=== PATIENT | female | born 1960 | race Caucasian/White ===

== ENCOUNTER 2016-04-13 10:01 | Emergency (ER) | payer BC, OTHER ==
[2016-04-13] MEDS ORDERED: WARFARIN 5 MG TABLET PO STA (14:00)
[2016-04-13] MEDS ORDERED: ENOXAPARIN 80 MG/0.8 ML SYRINGE SUBQ STA (14:00)
[2016-04-13] MEDS ORDERED: ENOXAPARIN 80 MG/0.8 ML SYRINGE SUBQ ONE (14:30)
== END 2016-04-13 15:08 | disposition home or self-care (01) ==
DX: I82.432 Acute embolism and thrombosis of left popliteal vein (principal); I82.492 Acute embolism and thrombosis of other specified deep vein of left lower extremity; I10 Essential (primary) hypertension; E03.9 Hypothyroidism, unspecified
CPT/HCPCS: 36415; 85379; 85610; 93971; 96372; 99283; 99284; A9270; J1650

== ENCOUNTER 2016-04-29 10:48 | Emergency (ER) | payer BC, OTHER | END 2016-04-29 12:34 | disposition home or self-care (01) | DX: S52.552A Other extraarticular fracture of lower end of left radius, initial encounter for closed fracture (principal); W19.XXXA Unspecified fall, initial encounter; Y92.009 Unspecified place in unspecified non-institutional (private) residence as the place of occurrence of the external cause; I10 Essential (primary) hypertension; Z86.718 Personal history of other venous thrombosis and embolism; Z79.01 Long term (current) use of anticoagulants; E03.9 Hypothyroidism, unspecified ==

== ENCOUNTER 2016-08-06 07:34 | Outpatient (CLI) | payer BC, OTHER ==
[2016-08-06 14:02] LABS: ALBUMIN/GLOBULIN RATIO 1.4 (1.0-2.2); BILIRUBIN,TOTAL 0.9 mg/dL (0.2-1.0); BUN - BLOOD UREA NITROGEN 17 mg/dL (6-20); CALCIUM 7.3 mg/dL (8.5-10.3); CARBON DIOXIDE - CO2 23 mmol/L (21-32); CHLORIDE 104 mmol/L (101-111); CHOL/HDL RATIO 3.2 (<4.4); CHOLESTEROL 136 mg/dL; CREATININE 0.7 mg/dL (0.4-1.0); GFR - MDRD 87 (>89); GLUCOSE 87 mg/dL (70-100); HDL CHOLESTEROL 43 mg/dL; LDL/HDL RATIO 1.6 (<4.4); POTASSIUM 3.6 mmol/L (3.5-5.0); SODIUM 138 mmol/L (135-145); TOTAL PROTEIN 7.1 g/dL (6.7-8.2); TRIGLYCERIDES 131 mg/dL; VLDL CHOLESTEROL 26 mg/dL
== END 2016-08-06 07:35 | disposition home or self-care (01) ==
LOC: LAB.WCP 07:34
PROVIDERS: ATTEND Physician Assistant Medical
DX: I25.10 Atherosclerotic heart disease of native coronary artery without angina pectoris (principal)
CPT/HCPCS: 36415; 80053; 80061

== ENCOUNTER 2016-09-29 07:40 | Outpatient (CLI) | payer BC, OTHER ==
--- NOTE | 2016-09-29 17:00 | MRI Report ---
EXAM: RIGHT KNEE MRI WITHOUT CONTRAST EXAM DATE: 09/29/2016 08:28 AM. CLINICAL HISTORY: Right knee pain. COMPARISON: None. TECHNIQUE: Multiplanar, multisequence T1-weighted and fluid-sensitive sequences of the knee without c ontrast. Other: None. FINDINGS: Bones and Articular Cartilage: Grade 3-4 chondromalacia at the central weightbearing aspect of the me dial femoral condyle. Grade 2-3 chondromalacia at the medial tibial plateau. Focal grade 2-3 chondrom alacia at the posterior weightbearing aspect of the lateral femoral condyle and focal grade 3-4 chond romalacia at the central and posterior aspects of the lateral tibial plateau. Grade 3-4 chondromalaci a at the medial patellar facet, grade 2-3 chondromalacia at the femoral trochlear groove, and grade 2 chondromalacia at the medial trochlear facet. No acute fractures or bone lesions. Normal marrow sign al. Medial Meniscus: The medial meniscus is intact. Lateral Meniscus: The lateral meniscus is intact. Cruciate Ligaments: The anterior and posterior cruciate ligaments are intact. Collateral Ligaments: The medial collateral and lateral collateral ligamentous structures are intact. Tendons: The quadriceps, patellar, semimembranosus, and popliteus tendons are unremarkable. Musculature: No edema or fatty atrophy. Other: Small joint effusion. Tiny Bear's cyst. No loose bodies. The medial and lateral retinacula ar e intact. The subcutaneous tissues and fat pads are unremarkable. IMPRESSION: 1. Tricompartmental chondromalacia. 2. No ligament or meniscal injury. 3. Small joint effusion and tiny Bear's cyst. [facility] MUSCULOSKE[facility] SECTION Referring Provider Line: [phone] SITE ID: [id number]
== END 2016-09-29 07:41 | disposition home or self-care (01) ==
LOC: DI 07:40
PROVIDERS: ATTEND Family Medicine
DX: M94.261 Chondromalacia, right knee (principal); M25.461 Effusion, right knee; M71.21 Synovial cyst of popliteal space [Baker], right knee

== ENCOUNTER 2017-12-03 16:45 | Outpatient (CLI) | payer OTHER | END 2017-12-03 16:46 | disposition home or self-care (01) | LOC: LAB.R 16:45 | PROVIDERS: ATTEND Physician Assistant | DX: B34.9 Viral infection, unspecified (principal) | CPT/HCPCS: 87275; 87276 ==

== ENCOUNTER 2018-05-09 14:21 | Outpatient (CLI) | payer OTHER ==
--- NOTE | 2018-05-14 12:53 | Mammography Report ---
Reason: SCREENING MAMMO Procedure Date: 05/09/2018 Accession Number: [id number] / [id number] Procedure: MGN - Screening Mammo Dig Bilat CPT Code: FULL RESULT: EXAM: Screening Mammo Dig Bilat DATE: 05/09/2018 2:51 PM CLINICAL HISTORY: Routine screening. No reported personal history of breast cancer. Family history breast cancer in cousin age 45 TECHNIQUE: (B) - Bilateral Bilateral CC and MLO views were obtained. COMPARISON: None PARENCHYMAL PATTERN: (A) - The breasts demonstrate scattered fibroglandular densities bilaterally. FINDINGS: Bilateral breasts: There are no suspicious masses, calcifications, or areas of distortion. IMPRESSION: Negative examination. BI-RADS category1 RECOMMENDATION: (ANNUAL) - Recommend routine annual screening mammography. BI-RADS CATEGORY: (1) - Negative STANDARD QUALIFYING STATEMENTS: 1. This examination was reviewed with the aid of Computer-Aided Detection (CAD). 2. A negative or benign imaging report should not preclude biopsy if clinically suspicious findings are present. 3. Dense breasts may obscure an underlying neoplasm. 4. This examination was reviewed without the aid of 3D breast imaging (tomosynthesis).
== END 2018-05-09 14:22 | disposition home or self-care (01) ==
LOC: DI.N 14:21
DX: Z12.31 Encounter for screening mammogram for malignant neoplasm of breast (principal)
CPT/HCPCS: 77067

== ENCOUNTER 2018-08-04 22:10 | Outpatient (CLI) | payer OTHER | END 2018-08-04 22:11 | disposition critical access hospital (66) | LOC: EMS 22:10 | PROVIDERS: ATTEND Surgery | DX: T63.441A Toxic effect of venom of bees, accidental (unintentional), initial encounter (principal); R07.89 Other chest pain; R06.00 Dyspnea, unspecified | CPT/HCPCS: A0425; A0427 ==

== ENCOUNTER 2018-08-04 22:26 | Emergency (ER) | payer OTHER ==
[2018-08-04] MEDS ORDERED: DEXAMETHASONE 20 MG/5 ML VIAL IVP ONE (22:41)
[2018-08-04] MEDS ORDERED: diphenhydrAMINE INJ 50 MG/ML VIAL IVP STA (22:41)
[2018-08-04] MEDS ORDERED: DEXAMETHASONE 4 MG/ML VIAL ONE (22:58)
--- NOTE | 2018-08-05 00:44 | ED Physician Documentation ---
History of Present Illness - Stated complaint Stated Complaint: BEE STING - Chief complaint Chief Complaint: Resp - History obtained from History obtained from: Patient - History of Present Illness Timing: Today - Additonal information Additional information: 58 y/o shiela was getting ready for bed when she felt a sharp sting on her knee she went to grab her knee and was stung in the hand as well. About 20 minutes later when she tried to lay down she found that she could not breathe. The ambulance was summoned and she has been administered epinephrine and a DuoNeb treatment in route. She has improvement in her breathing and feels overall improved. She has not had this reaction previously. Review of Systems Constitutional: denies: Fever Eyes: denies: Decreased vision Ears: denies: Ear pain Nose: denies: Congestion Throat: denies: Sore throat Cardiac: reports: Chest pain / pressure. denies: Palpitations Respiratory: reports: Dyspnea. denies: Cough, Wheezing GI: denies: Abdominal Pain, Nausea, Vomiting : denies: Dysuria PD PAST MEDICAL HISTORY - Past Medical History Past Medical History: Yes Cardiovascular: Hypertension, High cholesterol, Deep vein thrombosis Respiratory: Asthma Endocrine/Autoimmune: HyPOthyroidism GI: None : None HEENT: None Psych: None Musculoskeletal: Osteoarthritis Derm: None - Past Surgical History Past Surgical History: Yes General: Cholecystectomy Ortho: Arthroscopic surgery HEENT: Tonsil/Adenoidectomy - Present Medications Home Medications: Ambulatory Orders Medication Instructions Recorded Confirmed Atorvastatin Calcium 10 mg PO QDAC 07/17/12 04/29/16 Fexofenadine HCl [Carmen Allergy] 1 tab PO BID 04/29/16 04/29/16 Fluticasone [Flonase] 1 spray INH BID 04/29/16 04/29/16 Fluticasone/Salmeterol [Advair Hfa 2 puffs INH BID 04/29/16 04/29/16 230-21 Mcg Inhaler] HYDROcod/ACETAM 5/325 [[place] 5/325] 1 - 2 ea PO Q6H PRN #15 tablet 04/29/16 Hydrochlorothiazide 12.5 mg PO DAILY 04/29/16 04/29/16 Rivaroxaban [Xarelto] 15 mg PO BID 04/29/16 04/29/16 diltiaZEM CD [Cardizem Cd] 1 tab PO DAILY 04/29/16 04/29/16 EPINEPHrine [Epinephrine] 0.3 mg IJ ONCE PRN #2 auto.injct 08/05/18 - Allergies Allergies/Adverse Reactions: Allergies Allergy/AdvReac Type Severity Reaction Status Date / Time No Known Drug Allergies Allergy Verified 08/04/18 22:39 - Social History Does the pt smoke?: No Smoking Status: Never smoker Does the pt drink ETOH?: Yes Does the pt have substance abuse?: No - Immunizations Immunizations are current?: No Immunizations: TDAP >10years/unknown - POLST Patient has POLST: No PD ED PE NORMAL - Vitals Vital signs reviewed: Yes (tachy and hypertensive) - General General: Alert and oriented X 3, No acute distress, Well developed/nourished - HEENT HEENT: Atraumatic, PERRL, EOMI - Neck Neck: Supple, no meningeal sign - Cardiac Cardiac: No murmur, Other (tchy t) - Respiratory Respiratory: No respiratory distress, Clear bilaterally - Abdomen Abdomen: Soft, Non tender - Back Back: No CVA TTP, No spinal TTP - Derm Derm: Normal color, Warm and dry, No rash - Extremities Extremities: No deformity, No edema, Other (There is minimal local reaction to the sting over the left knee and the right palm) - Neuro Neuro: Alert and oriented X 3, screening tech 2-12 intact, No motor deficit, No sensory deficit, Normal speech Eye Opening: Spontaneous Motor: Obeys Commands Verbal: Oriented GCS Score: 15 - Psych Psych: Normal mood, Normal affect Results - Vitals Vitals: Vital Signs - 24 hr 08/04/18 08/04/18 22:28 23:57 Temperature 37.2 C Heart Rate 104 H 88 Respiratory 18 20 Rate Blood Pressure 151/77 H 149/84 H O2 Saturation 100 94 Oxygen O2 Source Room air PD MEDICAL DECISION MAKING - ED course Complexity details: re-evaluated patient, considered differential, d/w patient, d/w family ED course: 58-year-old female with an anaphylactic reaction to bee sting has had improvement with the use of epinephrine and here in the emergency department she is administered dexamethasone 10 mg and diphenhydramine 50 mg. Her vital signs improved and normal and she is discharged home feeling well. I have discussed with her that she will need to use an autoinjector and she is quite fine with that. Departure - Departure Disposition: Home, Self Care Clinical Impression: Bee sting-induced anaphylaxis Qualifiers: Encounter type: initial encounter Injury intent: accidental or unintentional Qualified Code(s): T63.441A - Toxic effect of venom of bees, accidental (unintentional), initial encounter Condition: Stable Instructions: ED Bite Sting Insect Gen Allergic React Follow-Up: Anabelle Dawkins PA-C [Primary Care Provider] - Prescriptions: EPINEPHrine [Epinephrine] 0.3 mg IJ ONCE PRN #2 auto.injct PRN Reason: bee sting Comments: Take benadryl 25mg every 6 hours for the next 2 days
[2018-08-05 00:48] VITALS: BP 143/78
== END 2018-08-05 00:57 | disposition home or self-care (01) ==
LOC: EDUNIT# → ED 22:26
DX: T63.441A Toxic effect of venom of bees, accidental (unintentional), initial encounter (principal); T78.2XXA Anaphylactic shock, unspecified, initial encounter; R06.00 Dyspnea, unspecified; I10 Essential (primary) hypertension
CPT/HCPCS: 96374; 99283; J1200

== ENCOUNTER 2018-10-29 11:58 | Outpatient (CLI) | payer OTHER ==
--- NOTE | 2018-10-29 18:35 | XRAY Report ---
Reason: LEFT HIP PAIN Procedure Date: 10/29/2018 Accession Number: [id number] / [id number] Procedure: WCP - Hip 1 View LT CPT Code: FULL RESULT: EXAM: LEFT HIP RADIOGRAPHY EXAM DATE: 10/29/2018 12:12 PM. CLINICAL HISTORY: LEFT HIP PAIN. COMPARISON: LT HIP 07/28/2007 12:15 PM. TECHNIQUE: 2 views. FINDINGS: Bones: Normal. No fractures or bone lesion. Joints: Normal. No dislocation. The hip joint space is preserved. Soft Tissues: Surgical clip in the pelvis may be dropped from prior surgery. Some calcifications in the pelvis are likely phleboliths as they mostly have lucent centers. IMPRESSION: Normal left hip radiography. [facility]
== END 2018-10-29 23:59 | disposition home or self-care (01) ==
LOC: DI.WCP 11:58 → EDSTATUS 13:38 → DI.WCP 23:59
PROVIDERS: ATTEND Family Medicine
DX: M25.552 Pain in left hip (principal)

== ENCOUNTER 2019-04-04 14:20 | Emergency (ER) | payer OTHER ==
--- NOTE | 2019-04-04 14:54 | XRAY Report ---
Reason: cough Procedure Date: 04/04/2019 Accession Number: [id number] / [id number] Procedure: XR - Chest 2 View X-Ray CPT Code: 68663 Final Report FULL RESULT: EXAM: CHEST RADIOGRAPHY EXAM DATE: 04/04/2019 02:40 PM. CLINICAL HISTORY: Cough. COMPARISON: Chest radiograph from 03/09/2016. TECHNIQUE: 2 views. FINDINGS: Lungs/Pleura: No focal airspace opacities. No pleural effusion or pneumothorax. Mediastinum: Cardiac silhouette is at the upper limits of normal for size. Mediastinal contour and pulmonary vasculature are within normal limits. Other: None. IMPRESSION: No acute cardiopulmonary abnormality. [facility]
--- NOTE | 2019-04-04 17:26 | ED Physician Documentation ---
PD HPI URI - Stated complaint Stated Complaint: SOA - Chief complaint Chief Complaint: Resp - History obtained from History obtained from: Patient - History of Present Illness Timing - onset: How many weeks ago (1) Timing duration: Weeks (1) Timing details: Gradual onset, Still present Associated symptoms: Nasal congestion, Productive cough, Dyspnea (with wheezing). No: Fever, Sore throat Contributing factors: COPD / asthma. No: Sick contact, Travel, Immunocompromised Improves by: MDI/nebulizer Worsened by: Activity Similar symptoms before: Diagnosis (asthma exac with URIs. Usually responds to steroids more promptly.) Recently seen: Clinic (seen 5 days ago and Rx prednisone. Did 60 mg for 3 days, now at 40 mg for 2 days, and not much improvement. Using nebulizer at home.) Review of Systems Constitutional: reports: Myalgias. denies: Fever, Chills Nose: reports: Congestion Throat: denies: Sore throat Cardiac: denies: Chest pain / pressure, Palpitations, Pedal edema Respiratory: reports: Dyspnea, Cough, Wheezing GI: reports: Nausea. denies: Abdominal Pain, Vomiting, Diarrhea : denies: Dysuria, Frequency Neurologic: reports: Generalized weakness. denies: Focal weakness, Numbness PD PAST MEDICAL HISTORY - Past Medical History Cardiovascular: Hypertension, High cholesterol, Deep vein thrombosis, Atrial fibrillation Respiratory: Asthma Endocrine/Autoimmune: HyPOthyroidism GI: None : None HEENT: None Psych: None Musculoskeletal: Osteoarthritis Derm: None - Past Surgical History Past Surgical History: Yes General: Cholecystectomy Ortho: Arthroscopic surgery HEENT: Tonsil/Adenoidectomy - Present Medications Home Medications: Ambulatory Orders Medication Instructions Recorded Confirmed Atorvastatin Calcium 10 mg PO QDAC 07/17/12 04/29/16 Fexofenadine HCl [Carmen Allergy] 1 tab PO BID 04/29/16 04/29/16 Fluticasone [Flonase] 1 spray INH BID 04/29/16 04/29/16 Fluticasone/Salmeterol [Advair Hfa 2 puffs INH BID 04/29/16 04/29/16 230-21 Mcg Inhaler] HYDROcod/ACETAM 5/325 [[place] 5/325] 1 - 2 ea PO Q6H PRN #15 tablet 04/29/16 Hydrochlorothiazide 12.5 mg PO DAILY 04/29/16 04/29/16 Rivaroxaban [Xarelto] 15 mg PO BID 04/29/16 04/29/16 diltiaZEM CD [Cardizem Cd] 1 tab PO DAILY 04/29/16 04/29/16 EPINEPHrine [Epinephrine] 0.3 mg IJ ONCE PRN #2 auto.injct 08/05/18 Benzonatate [Tessalon Perle] 100 mg PO TID PRN #25 capsule 04/04/19 Doxycycline Monohydrate 100 mg PO BID #14 tablet 04/04/19 Hydrocodone/Acetaminophen [[place] 1 each PO Q6H PRN #15 tablet 04/04/19 5-325 Tablet] predniSONE [Prednisone] 60 mg PO DAILY #15 tablet 04/04/19 - Allergies Allergies/Adverse Reactions: Allergies Allergy/AdvReac Type Severity Reaction Status Date / Time No Known Drug Allergies Allergy Verified 04/04/19 14:23 - Social History Does the pt smoke?: No Smoking Status: Never smoker Does the pt drink ETOH?: Yes Does the pt have substance abuse?: No - Immunizations Immunizations are current?: No Immunizations: TDAP >10years/unknown - POLST Patient has POLST: No PD ED PE NORMAL - Vitals Vital signs reviewed: Yes - General General: Alert and oriented X 3, No acute distress, Well developed/nourished - Neck Neck: Supple, no meningeal sign, No adenopathy - Cardiac Cardiac: RRR, No murmur - Respiratory Respiratory: No respiratory distress, Clear bilaterally - Abdomen Abdomen: Soft, Non tender - Extremities Extremities: No edema, No calf tenderness / cord - Neuro Neuro: Alert and oriented X 3, No motor deficit, Normal speech Results - Vitals Vitals: Vital Signs - 24 hr 04/04/19 18:11 Temperature 36.7 C Heart Rate 70 Respiratory 18 Rate Blood Pressure 166/91 H O2 Saturation 96 Oxygen O2 Source Room air - Rads (name of study) chest xray Radiology: Prelim report reviewed, See rad report PD MEDICAL DECISION MAKING - ED course Complexity details: considered differential (Given her asthma and productive cough and inadequate response to just steroids, I would consider possibility of bacterial infection as well. I would continue her steroids and add an antibiotic and medicine for cough.), d/w patient Departure - Departure Disposition: 01 Home, Self Care Clinical Impression: Exacerbation of asthma Qualifiers: Asthma severity: moderate Asthma persistence: unspecified Qualified Code(s): J45.901 - Unspecified asthma with (acute) exacerbation Acute bronchitis Qualifiers: Bronchitis organism: unspecified organism Qualified Code(s): J20.9 - Acute bronchitis, unspecified Condition: Stable Record reviewed to determine appropriate education?: Yes Follow-Up: Anabelle Dawkins PA-C [Primary Care Provider] - Prescriptions: Benzonatate [Tessalon Perle] 100 mg PO TID PRN #25 capsule PRN Reason: Cough Doxycycline Monohydrate 100 mg PO BID #14 tablet Hydrocodone/Acetaminophen [[place] 5-325 Tablet] 1 each PO Q6H PRN #15 tablet PRN Reason: Pain predniSONE [Prednisone] 60 mg PO DAILY #15 tablet Comments: Continue your DuoNeb nebulizers 4 times a day for the next week or so and then as needed. Continue the prednisone at 60 mg daily for 3 more days and then down to 40 mg for couple of days and then to the 1 mg for a few days. Doxycycline antibiotic twice daily for a week. Use benzonatate as needed for cough suppression. You can use the codeine cough medicine you have at home or alternatively hydrocodone pain pill to help with pain as well as cough suppression. Recheck if not improving well over the next couple of days. Discharge Date/Time: 04/04/19 18:18
[2019-04-04] MEDS ORDERED: DOXYCYCLINE 100 MG TABLET PO STA (17:52)
[2019-04-04] MEDS ORDERED: BENZONATATE 100 MG CAPSULE PO STA (17:52)
[2019-04-04] MEDS ORDERED: HYDROcod/ACETAM 5/325 MG TABLET PO STA (17:52)
[2019-04-04 18:12] VITALS: BP 166/91
== END 2019-04-04 18:18 | disposition home or self-care (01) ==
LOC: ED 14:20
DX: J45.901 Unspecified asthma with (acute) exacerbation (principal); J20.9 Acute bronchitis, unspecified; E03.9 Hypothyroidism, unspecified; I48.91 Unspecified atrial fibrillation; Z79.51 Long term (current) use of inhaled steroids; Z79.52 Long term (current) use of systemic steroids; Z79.01 Long term (current) use of anticoagulants
CPT/HCPCS: 71046; 99283; 99284; A9270

== ENCOUNTER 2019-04-09 13:56 | Emergency (ER) | payer OTHER ==
[2019-04-09] MEDS ORDERED: IPRATROPIUM/ALBUTEROL 3 ML NEB INH STA (16:20)
--- NOTE | 2019-04-09 16:21 | ED Physician Documentation ---
PD HPI DYSPNEA - Stated complaint Stated Complaint: SOA - Chief complaint Chief Complaint: Resp - History obtained from History obtained from: Patient (This is a very pleasant woman with history of asthma who has not been feeling well for the last month or so. She is been short of breath, she does get help with DuoNeb and has been on prednisone for about 10 days now and feels worse today because the prednisone taper started and she feels like she needed more prednisone. She did go from 60 to 40 mg of prednisone today. There is some anterior chest pressure radiating up to the neck. She was seen a few days ago and also put on antibiotics. A chest x-ray at that time was negative. He has a history of atrial fibrillation maintained on diltiazem but not anticoagulants but also a history of DVT.) Review of Systems Constitutional: reports: Fatigue. denies: Fever, Chills Throat: denies: Sore throat Cardiac: reports: Chest pain / pressure. denies: Palpitations, Pedal edema, Calf pain Respiratory: reports: Dyspnea. denies: Cough, Hemoptysis, Wheezing PD PAST MEDICAL HISTORY - Past Medical History Cardiovascular: Hypertension, High cholesterol, Deep vein thrombosis, Atrial fibrillation Respiratory: Asthma Endocrine/Autoimmune: HyPOthyroidism GI: None : None HEENT: None Psych: None Musculoskeletal: Osteoarthritis Derm: None - Past Surgical History Past Surgical History: Yes General: Cholecystectomy Ortho: Arthroscopic surgery HEENT: Tonsil/Adenoidectomy - Present Medications Home Medications: Ambulatory Orders Medication Instructions Recorded Confirmed Atorvastatin Calcium 10 mg PO QDAC 07/17/12 04/29/16 Fexofenadine HCl [Carmen Allergy] 1 tab PO BID 04/29/16 04/29/16 Fluticasone [Flonase] 1 spray INH BID 04/29/16 04/29/16 Fluticasone/Salmeterol [Advair Hfa 2 puffs INH BID 04/29/16 04/29/16 230-21 Mcg Inhaler] HYDROcod/ACETAM 5/325 [[place] 5/325] 1 - 2 ea PO Q6H PRN #15 tablet 04/29/16 Hydrochlorothiazide 12.5 mg PO DAILY 04/29/16 04/29/16 Rivaroxaban [Xarelto] 15 mg PO BID 04/29/16 04/29/16 diltiaZEM CD [Cardizem Cd] 1 tab PO DAILY 04/29/16 04/29/16 EPINEPHrine [Epinephrine] 0.3 mg IJ ONCE PRN #2 auto.injct 08/05/18 Benzonatate [Tessalon Perle] 100 mg PO TID PRN #25 capsule 04/04/19 Doxycycline Monohydrate 100 mg PO BID #14 tablet 04/04/19 Hydrocodone/Acetaminophen [[place] 1 each PO Q6H PRN #15 tablet 04/04/19 5-325 Tablet] predniSONE [Prednisone] 60 mg PO DAILY #15 tablet 04/04/19 predniSONE [Deltasone] 60 mg PO DAILY 5 Days #15 tablet 04/09/19 - Allergies Allergies/Adverse Reactions: Allergies Allergy/AdvReac Type Severity Reaction Status Date / Time bee pollen Allergy Unknown Verified 04/09/19 13:59 seasonal Allergy Respiratory Uncoded 04/06/19 14:24 - Social History Does the pt smoke?: No Smoking Status: Never smoker Does the pt drink ETOH?: Yes Does the pt have substance abuse?: No - Immunizations Immunizations are current?: No Immunizations: TDAP >10years/unknown - POLST Patient has POLST: No PD ED PE NORMAL - Vitals Vital signs reviewed: Yes - General General: Alert and oriented X 3, Other (Occasional cough despite her saying she has no cough.) - HEENT HEENT: PERRL, EOMI - Neck Neck: Supple, no meningeal sign, No bony TTP - Cardiac Cardiac: RRR, No murmur - Respiratory Respiratory: No respiratory distress, Clear bilaterally - Abdomen Abdomen: Non tender - Back Back: No CVA TTP, No spinal TTP - Derm Derm: Normal color, Warm and dry - Extremities Extremities: No edema, No calf tenderness / cord - Neuro Neuro: Alert and oriented X 3, Normal speech Results - Vitals Vitals: Vital Signs - 24 hr 04/09/19 04/09/19 13:59 16:08 Temperature 36.9 C 36.8 C Heart Rate 71 71 Respiratory 18 16 Rate Blood Pressure 171/83 H 130/75 O2 Saturation 98 97 Oxygen O2 Source T-piece - EKG (time done) 1636 Rate: Rate (enter#) (69) Rhythm: NSR [place]: Normal Intervals: Normal [place] QRS: Normal Ischemia: Non specific changes. No: ST elevation c/w ischemia Compare to prior EKG: Unchanged from prior EKG - Labs Labs: Laboratory Tests 04/09/19 04/09/19 04/09/19 16:44 16:44 16:44 WBC 17.4 H RBC 5.38 Hgb 13.0 Hct 41.4 MCV 77.0 L MCH 24.2 L MCHC 31.4 L RDW 16.9 H Plt Count 331 MPV 9.9 Neut # (Auto) 13.7 H Lymph # (Auto) 1.7 [place] # (Auto) 0.9 Eos # (Auto) 0.0 Baso # (Auto) 0.1 Absolute Nucleated RBC 0.00 Nucleated RBC % 0.0 D-Dimer 281.3 H Sodium 142 Potassium 3.5 Chloride 103 Carbon Dioxide 25 Anion Gap 14.0 H BUN 18 Creatinine 0.7 Estimated GFR (MDRD) 86 L Glucose 121 H Calcium 7.6 L Total Bilirubin 1.2 H AST 18 ALT 26 Alkaline Phosphatase 86 Troponin I High Sens Total Protein 7.7 Albumin 4.3 Globulin 3.4 Albumin/Globulin Ratio 1.3 Lipase 30 04/09/19 16:44 WBC RBC Hgb Hct MCV MCH MCHC RDW Plt Count MPV Neut # (Auto) Lymph # (Auto) [place] # (Auto) Eos # (Auto) Baso # (Auto) Absolute Nucleated RBC Nucleated RBC % D-Dimer Sodium Potassium Chloride Carbon Dioxide Anion Gap BUN Creatinine Estimated GFR (MDRD) Glucose Calcium Total Bilirubin AST ALT Alkaline Phosphatase Troponin I High Sens 2.5 Total Protein Albumin Globulin Albumin/Globulin Ratio Lipase PD MEDICAL DECISION MAKING - ED course ED course: 59-year-old woman presents with shortness of breath in the setting of pre- existing diagnosis of bronchitis and underlying asthma. Feeling worse today after decreasing the dose of steroids. She felt better after a DuoNeb here. Expanded work-up to consider cardiac and PE causes was undertaken, cardiac work- up was negative. She had a modestly elevated d-dimer which was followed by CT angiography of the test which was negative. We will increase the steroids but counseled and she understands that she needs to come down off the steroids soon as possible. Departure - Departure Disposition: 01 Home, Self Care Clinical Impression: Bronchitis Dyspnea Qualifiers: Dyspnea type: shortness of breath Qualified Code(s): R06.02 - Shortness of breath; R06.00 - Dyspnea, unspecified; R06.01 - Orthopnea Condition: Good Record reviewed to determine appropriate education?: Yes Instructions: ED Bronchitis Asthmatic Prescriptions: predniSONE [Deltasone] 60 mg PO DAILY 5 Days #15 tablet Comments: Follow-up with your doctor on Saturday as scheduled. Return for new or worsening symptoms. You can go back to the prednisone at 60 mg a day but as discussed you need to come down off of it as soon as possible to avoid long-term side effects.
[2019-04-09 16:52] LABS: BASOPHILS # (AUTO) 0.1 10^3/uL (0.0-0.1); BASOPHILS % (AUTO) 0.4 %; LYMPHOCYTES # (AUTO) 1.7 10^3/uL (1.5-3.5); LYMPHOCYTES % (AUTO) 9.8 %; MEAN CORPUSCULAR HEMOGLOBIN 24.2 pg (27.0-31.0); MEAN CORPUSCULAR HGB CONC 31.4 g/dL (32.0-36.0); MEAN PLATELET VOLUME 9.9 fL (7.9-10.8); MONOCYTES # (AUTO) 0.9 10^3/uL (0.0-1.0); MONOCYTES % (AUTO) 5.2 %; NEUTROPHILS # (AUTO) 13.7 10^3/uL (1.5-6.6); NEUTROPHILS % (AUTO) 78.9 %; PLT - PLATELET COUNT 331 10^3/uL (130-450); RED BLOOD COUNT 5.38 10^6/uL (4.20-5.40); RED CELL DISTRIBUTION WIDTH 16.9 % (12.0-15.0); WHITE BLOOD COUNT 17.4 x10^3/uL (4.8-10.8)
[2019-04-09 17:06] LABS: ALBUMIN 4.3 g/dL (3.2-5.5); ALBUMIN/GLOBULIN RATIO 1.3 (1.0-2.2); BILIRUBIN,TOTAL 1.2 mg/dL (0.2-1.0); CALCIUM 7.6 mg/dL (8.5-10.3); CREATININE 0.7 mg/dL (0.4-1.0); TOTAL PROTEIN 7.7 g/dL (6.7-8.2)
[2019-04-09] MEDS ORDERED: IOVERSOL 320 100 ML VIAL IVP ONE ×2 (17:57→18:53)
--- NOTE | 2019-04-09 19:26 | CT Report ---
Reason: dyspnea, pos dimer, Pe protocol Procedure Date: 04/09/2019 Accession Number: [id number] / [id number] Procedure: CT - ANGIO CHEST W/WO CPT Code: Final Report FULL RESULT: EXAM: CT ANGIOGRAM CHEST EXAM DATE: 04/09/2019 06:52 PM. CLINICAL HISTORY: Dyspnea and positive d-dimer COMPARISON: CHEST ANGIO 11/30/2015 5:00 PM. TECHNIQUE: Routine helical imaging was performed through the chest in the pulmonary arterial phase. IV Contrast: OPTIRAY 320. Reconstructions: Coronal 3-D MIP reconstructions. Sagittal and coronal. In accordance with CT protocol optimization, one or more of the following dose reduction techniques were utilized for this exam: automated exposure control, adjustment of mA and/or KV based on patient size, or use of iterative reconstructive technique. FINDINGS: Pulmonary Arteries: Diagnostic quality: Adequate through the segmental arteries. Negative for acute pulmonary embolism. Main pulmonary artery size is normal. Lungs/Pleura: The lungs appear clear. Lung volumes are normal. Negative for pleural effusion and pneumothorax. Mediastinum: Heart size is normal. Negative for pericardial effusion. No mediastinal or hilar lymphadenopathy. Thoracic Aorta: Negative for thoracic aortic aneurysm and dissection. Upper Abdomen: There are calcified granulomas in the spleen. There is a cyst in the liver. Other: None. IMPRESSION: 1. Negative for acute pulmonary embolism. 2. No other significant acute process in the chest. [facility]
[2019-04-09] MEDS ORDERED: DEXAMETHASONE 10 MG/ML VIAL IVP STA (19:43)
[2019-04-09 19:58] VITALS: BP 151/70
== END 2019-04-09 19:57 | disposition home or self-care (01) ==
LOC: ED 13:56
DX: J40 Bronchitis, not specified as acute or chronic (principal); R79.89 Other specified abnormal findings of blood chemistry; I10 Essential (primary) hypertension; Z86.718 Personal history of other venous thrombosis and embolism; Z79.01 Long term (current) use of anticoagulants
CPT/HCPCS: 36415; 71275; 80053; 83690; 84484; 85025; 85379; 93005; 94640; 96374; 99284; Q9967

== ENCOUNTER → 2020-02-26 | Outpatient (CLI) | payer OTHER ==
[2020-02-26 12:57] LABS: BASOPHILS # (AUTO) 0.1 10^3/uL (0.0-0.1); EOSINOPHILS # (AUTO) 0.3 10^3/uL (0.0-0.7); EOSINOPHILS % (AUTO) 3.2 %; HGB - HEMOGLOBIN 13.5 g/dL (12.0-16.0); LYMPHOCYTES # (AUTO) 2.1 10^3/uL (1.5-3.5); LYMPHOCYTES % (AUTO) 25.3 %; MEAN CORPUSCULAR HEMOGLOBIN 25.9 pg (27.0-31.0); MEAN CORPUSCULAR HGB CONC 31.2 g/dL (32.0-36.0); MONOCYTES # (AUTO) 0.5 10^3/uL (0.0-1.0); MONOCYTES % (AUTO) 5.9 %; NEUTROPHILS # (AUTO) 5.3 10^3/uL (1.5-6.6); NEUTROPHILS % (AUTO) 63.4 %; PLT - PLATELET COUNT 270 10^3/uL (130-450); RED BLOOD COUNT 5.22 10^6/uL (4.20-5.40); RED CELL DISTRIBUTION WIDTH 14.6 % (12.0-15.0); WHITE BLOOD COUNT 8.3 x10^3/uL (4.8-10.8)
[2020-02-26 13:20] LABS: ALBUMIN 4.4 g/dL (3.2-5.5); ALBUMIN/GLOBULIN RATIO 1.4 (1.0-2.2); ALKALINE PHOSPHATASE 104 IU/L (42-121); ALT ALANINE AMINOTRANSFERASE 25 IU/L (10-60); AST ASPARTATE AMINOTRANSFERASE 23 IU/L (10-42); BILIRUBIN,TOTAL 1.1 mg/dL (0.2-1.0); BUN - BLOOD UREA NITROGEN 14 mg/dL (6-20); CALCIUM 7.7 mg/dL (8.5-10.3); CARBON DIOXIDE - CO2 26 mmol/L (21-32); CHLORIDE 103 mmol/L (101-111); CHOL/HDL RATIO 4.3 (<4.4); CHOLESTEROL 179 mg/dL; CREATININE 0.7 mg/dL (0.4-1.0); GLUCOSE 94 mg/dL (70-100); HDL CHOLESTEROL 42 mg/dL; LDL CHOLESTEROL,CALCULATED 105 mg/dL; LDL/HDL RATIO 2.5 (<4.4); SODIUM 142 mmol/L (135-145); TOTAL PROTEIN 7.6 g/dL (6.7-8.2); VLDL CHOLESTEROL 32 mg/dL
== END ==
LOC: LAB.WCP 08:00
PROVIDERS: ATTEND Physician Assistant Medical
DX: E78.5 Hyperlipidemia, unspecified (principal); J45.909 Unspecified asthma, uncomplicated
CPT/HCPCS: 36415; 80053; 80061; 83721; 85025

== ENCOUNTER 2020-04-11 15:17 | Outpatient (CLI) | payer OTHER ==
--- NOTE | 2020-04-11 16:59 | XRAY Report ---
PROCEDURE: Lumbar Spine 2 View INDICATIONS: POST MENOPAUSAL,CHRONIC LOW BACK PAIN TECHNIQUE: 2 views of the lumbar spine were acquired. COMPARISON: None. FINDINGS: Bones: 5 [id number] vertebrae are present. There is normal bony alignment. There is severe di sc space narrowing at L5-S1. Moderate foraminal narrowing is noted at this level. There is possible p ars defect at L5. No vertebral body compression fractures. No suspicious bony lesions. Soft tissues: Overlying bowel gas pattern is normal. No suspicious soft tissue calcifications. IMPRESSION: Degenerative changes most notable at L5-S1. Possible pars defect at L5 versus linear art ifact. If this remains of concern, oblique views are recommended. Reviewed by: Marilu Sloan MD on 04/11/2020 4:57 PM PST Approved by: Marilu Sloan MD on 04/11/2020 4:57 PM PST Station ID: [id number]
--- NOTE | 2020-04-11 16:59 | DEXA Report ---
PROCEDURE: Dexa Spine and/or Hip INDICATIONS: POST MENOPAUSAL TECHNIQUE: Dual energy x-ray absorptiometry (DXA) was performed on a Feedo System. Regions measur ed are the AP Spine, femoral neck, and if needed forearm. COMPARISON: None. FINDINGS: Lumbar Spine: Bone Mineral Density 1.228 g/cm/cm,T score 0.4, Left Hip: Bone Mineral Density 1.167 g/cm/cm,T score 1.3, Left Femoral Neck: Bone Mineral Density 1.076 g/cm/cm, T score 1.3, forearm: Bone Mineral Density g/cm/cm, T score , (T score greater or equal to -1.0: NORMAL) (T score from -1.1 to -2.4: OSTEOPENIA) (T score less than or equal to -2.5 to: OSTEOPOROSIS) Impression: No osteopenia or osteoporosis. Patients with diagnosis of osteoporosis or osteopenia should have regular bone mineral density assess ment. For those eligible for Medicare, routine testing is allowed once every 2 years. Testing frequ ency can be increased for patients who have rapidly progressing disease or for those who are receivin g medical therapy to restore bone mass. Reviewed by: Marilu Sloan MD on 04/11/2020 4:58 PM PST Approved by: Marilu Sloan MD on 04/11/2020 4:58 PM PST Station ID: [id number]
== END 2020-04-11 15:18 | disposition home or self-care (01) ==
LOC: DI 15:17
PROVIDERS: ATTEND Physician Assistant Medical
DX: M47.817 Spondylosis without myelopathy or radiculopathy, lumbosacral region (principal); E21.3 Hyperparathyroidism, unspecified; Z78.0 Asymptomatic menopausal state

== ENCOUNTER 2020-06-03 08:00 | Outpatient (CLI) | payer OTHER ==
--- NOTE | 2020-06-06 13:10 | XRAY Report ---
PROCEDURE: Knee 3 View RT INDICATIONS: RIGHT KNEE PAIN TECHNIQUE: 3 views of the right knee(s) were acquired. COMPARISON: October 25, 2016 FINDINGS: Moderate patellofemoral joint space narrowing particularly involves the lateral facet. There is moder ate medial and mild lateral mental joint space narrowing as well. The normal bone mineralization with out fracture or malalignment. No joint effusion present. Atherosclerotic vascular calcification noted. No foreign body. IMPRESSION: 1. Xsqt-gr-nroigpyw osteoarthritis, slightly increased from the prior. No joint effusion. Reviewed by: Bradly Whipple MD on 06/03/2020 1:20 PM PDT Approved by: Bradly Whipple MD on 06/03/2020 1:20 PM PDT Station ID: [id number]
== END 2020-06-03 23:59 | disposition home or self-care (01) ==
LOC: DI.N 08:00
PROVIDERS: ATTEND Nurse Practitioner
DX: M17.11 Unilateral primary osteoarthritis, right knee (principal)

== ENCOUNTER 2020-06-30 07:13 | Outpatient (CLI) | payer BC, OTHER ==
--- NOTE | 2020-06-30 09:55 | XRAY Report ---
PROCEDURE: Knee 4 View RT INDICATIONS: PAIN IN RIGHT KNEE TECHNIQUE: 4 views of the right knee(s) were acquired. COMPARISON: X-ray of the right knee, 3 views, 06/06/2020. FINDINGS: Bones: No fractures or dislocations. No suspicious bony lesions. Mild to-moderate tricompartmental knee joint degeneration. Soft tissues: Small joint effusion. No suspicious soft tissue calcifications. IMPRESSION: Mild to-moderate tricompartmental knee joint degeneration. Small knee joint effusion. Reviewed by: Barbi Tijerina MD on 06/30/2020 9:54 AM PDT Approved by: Barbi Tijerina MD on 06/30/2020 9:54 AM PDT Station ID: [id number]
== END 2020-06-30 23:59 | disposition home or self-care (01) ==
LOC: DI.N 07:13
PROVIDERS: ATTEND Physician Assistant
DX: M17.11 Unilateral primary osteoarthritis, right knee (principal); M25.461 Effusion, right knee

== ENCOUNTER 2021-01-09 13:26 | Outpatient (CLI) | payer BC, OTHER ==
--- NOTE | 2021-01-09 16:42 | XRAY Report ---
PROCEDURE: Shoulder 3 View LT INDICATIONS: L SHOULDER STRAIN TECHNIQUE: 3 views of the shoulder were acquired. COMPARISON: None. FINDINGS: Bones: No fractures or dislocations. No suspicious bony lesions. The rotator cuff tear anchor sutur e is present in the humeral head. At least moderate glenohumeral joint degenerative change. Widening of the AC joint may represent postsurgical change. Visualized ribs appear intact. Soft tissues: No suspicious soft tissue calcifications. IMPRESSION: Postsurgical changes. At least moderate glenohumeral joint degenerative arthritis. No evidence acute bony abnormality of the left shoulder. If clinical suspicion and/or symptoms persist, further assessment with repeat plain films or advanced imaging (e.g., CT, MRI, or bone scan) may be helpful for further assessment. Reviewed by: Ryan Macedo MD on 01/09/2021 4:41 PM PST Approved by: Ryan Macedo MD on 01/09/2021 4:41 PM PST Station ID: [id number]
== END 2021-01-09 23:59 | disposition home or self-care (01) ==
LOC: DI.N 13:26
PROVIDERS: ATTEND Physician Assistant Medical
DX: M19.012 Primary osteoarthritis, left shoulder (principal)

== ENCOUNTER 2022-05-24 19:06 | Emergency (ER) | payer BC, OTHER ==
[2022-05-24 19:20] VITALS: BP 135/68
--- OUTSIDE RECORDS SUMMARY | 2022-05-24 19:36 | EXTERNAL MEDICAL SUMMARY RPT | Continuity of Care Document ---
:1960 Author Organization [facility] Address [address] [place] [address] Phone Allergies No information. Encounters No information. Functional Status No information. Immunizations No information. Medications No information. Problems date description facility 2022-04-09 15:42 Urinary tract infection, site not speci [facility] 2022-04-09 15:42 Encounter for preprocedural [facility] examination 2022-04-09 15:42 Encounter for other preprocedural exami [facility] 2022-04-09 16:19 Urinary tract infection, site not speci [facility] 2022-04-09 16:19 Encounter for preprocedural [facility] examination 2022-04-09 16:19 Encounter for other preprocedural exami [facility] 2022-04-17 14:59 Primary osteoarthritis, [facility] 2022-04-17 15:37 Primary osteoarthritis, [facility] 2022-04-17 16:42 Primary osteoarthritis, [facility] Procedures No information. Results/Labs test date author facility value unit interpret ation Result panel 1 (unknown) (no date) (unknown) (unknown) 0 /ul (unkn own) (unknown) (no date) (unknown) (unknown) 0.4 % (unkn own) (unknown) (no date) (unknown) (unknown) 13.7 g/dl (unkn own) (unknown) (no date) (unknown) (unknown) 14.6 % (unkn own) (unknown) (no date) (unknown) (unknown) 2600 /ul (unkn own) (unknown) (no date) (unknown) (unknown) 268 x10 3/ul (unkn own) (unknown) (no date) (unknown) (unknown) 27.0 pg (unkn own) (unknown) (no date) (unknown) (unknown) 27.1 % (unkn own) (unknown) (no date) (unknown) (unknown) 3.9 % (unkn own) (unknown) (no date) (unknown) (unknown) 33.7 % (unkn own) (unknown) (no date) (unknown) (unknown) 40.5 % (unkn own) (unknown) (no date) (unknown) (unknown) 400 /ul (unkn own) (unknown) (no date) (unknown) (unknown) 5.07 x10 6/ul (unkn own) (unknown) (no date) (unknown) (unknown) 6.2 % (unkn own) (unknown) (no date) (unknown) (unknown) 600 /ul (unkn own) (unknown) (no date) (unknown) (unknown) 6000 /ul (unkn own) (unknown) (no date) (unknown) (unknown) 62.4 % (unkn own) (unknown) (no date) (unknown) (unknown) 80.0 fl (unkn own) (unknown) (no date) (unknown) (unknown) 9.6 x10 3/ul (unkn own) Result panel 2 (unknown) (no date) (unknown) (unknown) > 60 ml/min (unkn own) (unknown) (no date) (unknown) (unknown) > 60 ml/min (unkn own) (unknown) (no date) (unknown) (unknown) 0.74 mg/dl (unkn own) (unknown) (no date) (unknown) (unknown) 100 mmol/l (unkn own) (unknown) (no date) (unknown) (unknown) 108 mg/dl (unkn own) (unknown) (no date) (unknown) (unknown) 108 mg/dl (unkn own) (unknown) (no date) (unknown) (unknown) 14 mg/dl (unkn own) (unknown) (no date) (unknown) (unknown) 142 mmol/l (unkn own) (unknown) (no date) (unknown) (unknown) 18.9 (units unknown) (unknown) (unknown) (no date) (unknown) (unknown) 25 mmol/l (unkn own) (unknown) (no date) (unknown) (unknown) 3.4 mmol/l (unkn own) (unknown) (no date) (unknown) (unknown) 7.7 mg/dl (unkn own) Result panel 3 (unknown) (no date) (unknown) (unknown) 0.2 e.u./dl (unkn own) (unknown) (no date) (unknown) (unknown) 1.010 (units (unkn own) unknown) (unknown) (no date) (unknown) (unknown) 6.0 (units (unkn own) unknown) (unknown) (no date) (unknown) (unknown) CLEAR (units (unkn own) unknown) (unknown) (no date) (unknown) (unknown) NEGATIVE (units (unkn own) unknown) (unknown) (no date) (unknown) (unknown) NEGATIVE g/dl (unkn own) (unknown) (no date) (unknown) (unknown) TRACE (units (unkn own) unknown) (unknown) (no date) (unknown) (unknown) YELLOW (units (unkn own) unknown) (unknown) (no date) (unknown) (unknown) YELLOW (units (unkn own) unknown) Result panel 4 (unknown) (no date) (unknown) (unknown) 0-1/HPF (units (unkn own) unknown) (unknown) (no date) (unknown) (unknown) 0.2 e.u./dl (unkn own) (unknown) (no date) (unknown) (unknown) 1.010 (units (unkn own) unknown) (unknown) (no date) (unknown) (unknown) 6.0 (units (unkn own) unknown) (unknown) (no date) (unknown) (unknown) CLEAR (units (unkn own) unknown) (unknown) (no date) (unknown) (unknown) Cult Not (units (unkn own) Indicated unknown) (unknown) (no date) (unknown) (unknown) NEGATIVE (units (unkn own) unknown) (unknown) (no date) (unknown) (unknown) NEGATIVE g/dl (unkn own) (unknown) (no date) (unknown) (unknown) None Seen (units (unk nown) unknown) (unknown) (no date) (unknown) (unknown) None Seen (units (unk nown) unknown) (unknown) (no date) (unknown) (unknown) TRACE (units (unkn own) unknown) (unknown) (no date) (unknown) (unknown) YELLOW (units (unkn own) unknown) (unknown) (no date) (unknown) (unknown) YELLOW (units (unkn own) unknown) Result panel 5 (unknown) (no (unknown) (unknown) (no value) (units (unk nown) date) unknown) (unknown) (no (unknown) (unknown) 04/17/22 (units (unkno wn) date) unknown) (unknown) (no (unknown) (unknown) 1. Moderate (units (un known) date) glenohumeral unknown) osteoarthrosis. (unknown) (no (unknown) (unknown) [address] [place] [address] (units (unknown) date) unknown) (unknown) (no (unknown) (unknown) 2. Postsurgical (units (unknown) date) changes at the unknown) acromioclavicular joint without recurrent (unknown) (no (unknown) (unknown) 3. Postsurgical (units (unknown) date) changes from prior unknown) rotator cuff tendon repair with a metallic (unknown) (no (unknown) (unknown) [id number] (units (unkno wn) date) unknown) (unknown) (no (unknown) (unknown) Accession Number: (units (unknown) date) [id number] unknown) (unknown) (no (unknown) (unknown) Age/Sex: 62 / F (units (unknown) date) Date of Service: unknown) (unknown) (no (unknown) (unknown) [place] [address] (unit s (unknown) date) unknown) (unknown) (no (unknown) (unknown) Approved by: (unit s (unknown) date) Thaddeus Langley on unknown) 04/18/2022 at 11:47 (unknown) (no (unknown) (unknown) Bones: No acute (units (unknown) date) osseous fracture or unknown) dislocation. A metallic anchor is seen in (unknown) (no (unknown) (unknown) COMPARISON: Outside (unit s (unknown) date) Film, CR, XR unknown) SHOULDER 2+ VIEWS LEFT, 01/09/2021, 13:43. (unknown) (no (unknown) (unknown) CT Scan Report (units (unknown) date) unknown) (unknown) (no (unknown) (unknown) : 1960 (units (unknown) date) Acct:[id number] unknown) (unknown) (no (unknown) (unknown) FINDINGS: (units (unkn own) date) unknown) (unknown) (no (unknown) (unknown) IMPRESSION: (units (un known) date) unknown) (unknown) (no (unknown) (unknown) INDICATIONS: (units (u nknown) date) Primary unknown) osteoarthritis, left shoulder (unknown) (no (unknown) (unknown) Image quality: (units (unknown) date) Excellent. unknown) (unknown) (no (unknown) (unknown) [facility] (units (unknown) date) unknown) (unknown) (no (unknown) (unknown) Loc: CT (units (unkno wn) date) unknown) (unknown) (no (unknown) (unknown) Noncontrast 1-1.5 mm (unit s (unknown) date) thick sections unknown) acquired from the acromioclavicular joint to (unknown) (no (unknown) (unknown) Ordering Provider: (units (unknown) date) Doron Smith MD unknown) (unknown) (no (unknown) (unknown) PROCEDURE: CT UE LT (unit s (unknown) date) WO CON unknown) (unknown) (no (unknown) (unknown) Patient: Sahara Goins (unit s (unknown) date) Christine MR#: [id number] unknown) (unknown) (no (unknown) (unknown) Procedure: CT UE LT (unit s (unknown) date) wo con unknown) (unknown) (no (unknown) (unknown) Signed (units (unkno wn) date) unknown) (unknown) (no (unknown) (unknown) [facility] (units (unkno wn) date) unknown) (unknown) (no (unknown) (unknown) Soft tissues: No (units (unknown) date) significant unknown) glenohumeral effusion. The rotator cuff (unknown) (no (unknown) (unknown) TECHNIQUE: (units (unk nown) date) unknown) (unknown) (no (unknown) (unknown) There is (units (unkno wn) date) unknown) (unknown) (no (unknown) (unknown) [facility], (units (unknown) date) CR, XR SHOULDER 2+ unknown) VIEWS LEFT, 03/28/2022, 7:47. (unknown) (no (unknown) (unknown) anchor in (units (unkn own) date) unknown) (unknown) (no (unknown) (unknown) cuff tendon (units (un known) date) unknown) (unknown) (no (unknown) (unknown) evaluated with (units (unknown) date) standard CT. The unknown) included portions of the left lung are clear. (unknown) (no (unknown) (unknown) greater tuberosity (units (unknown) date) related to prior unknown) rotator cuff tendon repair. Moderate joint (unknown) (no (unknown) (unknown) inferior scapula, (units (unknown) date) with coronal and unknown) sagittal reformatting. (unknown) (no (unknown) (unknown) musculature is (units (unknown) date) unknown) (unknown) (no (unknown) (unknown) narrowing is seen (units (unknown) date) at the glenohumeral unknown) joint with small marginal osteophytes. (unknown) (no (unknown) (unknown) narrowing of the (units (unknown) date) supraspinatus unknown) outlet. The included left-sided ribs are intact. (unknown) (no (unknown) (unknown) narrowing of the (units (unknown) date) unknown) (unknown) (no (unknown) (unknown) normal in bulk. The (unit s (unknown) date) articular unknown) cartilages, labrum, ligaments, and tendons are (unknown) (no (unknown) (unknown) not well (units (unkno wn) date) unknown) (unknown) (no (unknown) (unknown) probable partial (units (unknown) date) ossification of the unknown) anterior labrum. No significant glenoid (unknown) (no (unknown) (unknown) recurrent (units (unkn own) date) unknown) (unknown) (no (unknown) (unknown) seen. Postsurgical (units (unknown) date) changes are seen at unknown) the acromioclavicular joint without (unknown) (no (unknown) (unknown) space (units (unkno wn) date) unknown) (unknown) (no (unknown) (unknown) supraspinatus (units ( unknown) date) outlet. unknown) (unknown) (no (unknown) (unknown) tearing, although (units (unknown) date) the tendons are not unknown) well evaluated with CT. (unknown) (no (unknown) (unknown) the greater (units (un known) date) tuberosity. No signs unknown) of chronic recurrent full-thickness rotator (unknown) (no (unknown) (unknown) the (units (unkno wn) date) unknown) (unknown) (no (unknown) (unknown) version is (units (unk nown) date) unknown) Social History No information. Vital Signs No information.
--- NOTE | 2022-05-24 20:16 | ED Physician Documentation ---
History of Present Illness - Stated complaint Stated Complaint: FEVER - Chief complaint Chief Complaint: Fever - History obtained from History obtained from: Patient, Family - History of Present Illness Timing: Today Pain level max: 0 Pain level now: 0 - Additonal information Additional information: 62-year-old female presents to the emergency department stating that she had a fever earlier today at home. No cough, congestion, abdominal pain, vomiting, diarrhea. No urinary symptoms. No rhinorrhea. She states she was exposed to COVID a few days ago. She is scheduled to have shoulder surgery next week. She was told by the nurse advice line to come to the emergency department for a COVID test. PD PAST MEDICAL HISTORY - Past Medical History Cardiovascular: Hypertension, High cholesterol, Deep vein thrombosis, Atrial fibrillation Respiratory: Asthma Endocrine/Autoimmune: HyPOthyroidism GI: None : None HEENT: None Psych: None Musculoskeletal: Osteoarthritis Derm: None - Past Surgical History Past Surgical History: Yes General: Cholecystectomy Ortho: Arthroscopic surgery HEENT: Tonsil/Adenoidectomy - Present Medications Home Medications: Ambulatory Orders Medication Instructions Recorded Confirmed Atorvastatin Calcium 10 mg PO QDAC 07/17/12 04/29/16 Fexofenadine HCl [Carmen Allergy] 1 tab PO BID 04/29/16 04/29/16 Fluticasone [Flonase] 1 spray INH BID 04/29/16 04/29/16 Fluticasone/Salmeterol [Advair Hfa 2 puffs INH BID 04/29/16 04/29/16 230-21 Mcg Inhaler] diltiaZEM CD [Cardizem Cd] 1 tab PO DAILY 04/29/16 04/29/16 hydroCHLOROthiazide 12.5 mg PO DAILY 04/29/16 04/29/16 [Hydrochlorothiazide] EPINEPHrine [Epinephrine] 0.3 mg IJ ONCE PRN #2 auto.injct 08/05/18 Losartan [Cozaar] 100 mg PO DAILY 05/24/22 05/24/22 Montelukast [Singulair] 10 mg PO QPM 05/24/22 05/24/22 - Allergies Allergies/Adverse Reactions: Allergies Allergy/AdvReac Type Severity Reaction Status Date / Time bee pollen Allergy Unknown Verified 05/24/22 19:14 seasonal Allergy Respiratory Uncoded 05/24/22 19:14 - Social History Does the pt smoke?: No Smoking Status: Never smoker Does the pt drink ETOH?: Yes Does the pt have substance abuse?: No - Immunizations Immunizations are current?: No Immunizations: TDAP >10years/unknown - POLST Patient has POLST: No PD ED PE NORMAL - Vitals Vital signs reviewed: Yes - General General: Alert and oriented X 3, No acute distress - HEENT HEENT: PERRL, Moist mucous membranes - Neck Neck: Supple, no meningeal sign - Cardiac Cardiac: RRR, Strong equal pulses - Respiratory Respiratory: No respiratory distress, Clear bilaterally - Abdomen Abdomen: Soft, Non tender, Non distended - Derm Derm: Warm and dry, No rash - Neuro Neuro: Alert and oriented X 3 Results - Vitals Vitals: Vital Signs - 24 hr 05/24/22 19:14 Temperature 36.8 C Heart Rate 76 Respiratory 16 Rate Blood Pressure 135/68 H O2 Saturation 97 Oxygen O2 Source Room air - Labs Labs: Laboratory Tests 05/24/22 19:10 Nasal Adenovirus (PCR) NOT DETECTED Nasal B. parapertussis DNA (PCR) NOT DETECTED Nasal Coronavir 229E PCR NOT DETECTED Nasal Coronavir HKU1 PCR NOT DETECTED Nasal Coronavir NL63 PCR NOT DETECTED Nasal Coronavir OC43 PCR NOT DETECTED Nasal Enterovir/Rhinovir PCR NOT DETECTED Nasal Influenza B PCR NOT DETECTED Nasal Influenza A PCR NOT DETECTED Nasal Parainfluen 1 PCR NOT DETECTED Nasal Parainfluen 2 PCR NOT DETECTED Nasal Parainfluen 3 PCR NOT DETECTED Nasal Parainfluen 4 PCR NOT DETECTED Nasal RSV (PCR) NOT DETECTED Nasal B.pertussis DNA PCR NOT DETECTED Nasal C.pneumoniae (PCR) NOT DETECTED Kostas Human Metapneumo PCR NOT DETECTED Nasal M.pneumoniae (PCR) NOT DETECTED Nasal SARS-CoV-2 (PCR) NOT DETECTED PD Medical Decision Making - ED course Complexity details: reviewed results, considered differential, d/w patient ED course: Patient is well-appearing, nontoxic. Afebrile. No hypoxia. No respiratory distress. No cough. No congestion. Respiratory PCR is negative. No urinary symptoms. We will have her follow-up with her doctor for further care. Patient counseled regarding signs and symptoms for which I believe and urgent re- evaluation would be necessary. Patient with good understanding of and agreement to plan and is comfortable going home at this time This document was made in part using voice recognition software. While efforts are made to proofread this document, sound alike and grammatical errors may occur. Departure - Departure Disposition: 01 Home, Self Care Clinical Impression: Fever Qualifiers: Fever type: unspecified Qualified Code(s): R50.9 - Fever, unspecified Condition: Good Instructions: ED Fever Unconf Cause Follow-Up: Anabelle Dawkins PA-C [Primary Care Provider] - Within 1 week Comments: Your covid test is negative today. Please follow up with your doctor for further care. Return if you worsen. Discharge Date/Time: 05/24/22 20:31
[2022-05-24 20:21] LABS: B. PARAPERTUSSIS- RESP PCR PAN NOT DETECTED; B. PERTUSSIS- RESP PCR PANEL NOT DETECTED; C. PNEUMONIAE- RESP PCR PANEL NOT DETECTED; CORONAVIRUS 229E-RESP PCR NOT DETECTED; CORONAVIRUS HKU1-RESP PCR NOT DETECTED; CORONAVIRUS NL63-RESP PCR NOT DETECTED; CORONAVIRUS OC43-RESP PCR NOT DETECTED; HUMAN METAPNEUMOVIRUS NOT DETECTED; INFLUENZA A- RESP PCR PANEL NOT DETECTED; INFLUENZA B - RESP PCR PANEL NOT DETECTED; M. PNEUMONIAE- RESP PCR PANEL NOT DETECTED; PARAINFLUENZA VIRUS 1 NOT DETECTED; PARAINFLUENZA VIRUS 2 NOT DETECTED; PARAINFLUENZA VIRUS 3 NOT DETECTED; PARAINFLUENZA VIRUS 4 NOT DETECTED; RHINOVIRUS/ENTEROVIRUS NOT DETECTED; RSV- RESP PCR PANEL NOT DETECTED; SARS-CoV-2 -RESP PCR PANEL NOT DETECTED
== END 2022-05-24 20:31 | disposition home or self-care (01) ==
LOC: ED 19:06
DX: R50.9 Fever, unspecified (principal)
CPT/HCPCS: 87633; 99282; 99283

== ENCOUNTER 2022-10-19 07:05 | Outpatient (CLI) | payer OTHER ==
[2022-10-19 12:58] LABS: BASOPHILS # (AUTO) 0.1 10^3/uL (0.0-0.1); BASOPHILS % (AUTO) 0.7 %; EOSINOPHILS # (AUTO) 0.2 10^3/uL (0.0-0.7); EOSINOPHILS % (AUTO) 2.7 %; HCT - HEMATOCRIT 42.5 % (37.0-47.0); HGB - HEMOGLOBIN 13.1 g/dL (12.0-16.0); LYMPHOCYTES % (AUTO) 24.4 %; MEAN CORPUSCULAR HEMOGLOBIN 25.8 pg (27.0-31.0); MEAN CORPUSCULAR HGB CONC 30.8 g/dL (32.0-36.0); MEAN CORPUSCULAR VOLUME 83.7 fL (81.0-99.0); MEAN PLATELET VOLUME 11.1 fL (7.9-10.8); MONOCYTES # (AUTO) 0.5 10^3/uL (0.0-1.0); MONOCYTES % (AUTO) 6.5 %; NEUTROPHILS # (AUTO) 5.3 10^3/uL (1.5-6.6); PLT - PLATELET COUNT 249 10^3/uL (130-450); RED BLOOD COUNT 5.08 10^6/uL (4.20-5.40); RED CELL DISTRIBUTION WIDTH 14.4 % (12.0-15.0); WHITE BLOOD COUNT 8.2 x10^3/uL (4.8-10.8)
[2022-10-19 13:14] LABS: ALBUMIN 4.5 g/dL (3.2-5.5); ALBUMIN/GLOBULIN RATIO 1.7 (1.0-2.2); ALKALINE PHOSPHATASE 120 IU/L (42-121); ALT ALANINE AMINOTRANSFERASE 22 IU/L (10-60); AST ASPARTATE AMINOTRANSFERASE 20 IU/L (10-42); BILIRUBIN,TOTAL 0.9 mg/dL (0.2-1.0); BUN - BLOOD UREA NITROGEN 15 mg/dL (6-20); CALCIUM 8.7 mg/dL (8.5-10.3); CARBON DIOXIDE - CO2 30 mmol/L (21-32); CHLORIDE 102 mmol/L (101-111); CHOL/HDL RATIO 3.8 (<4.4); CHOLESTEROL 151 mg/dL; CREATININE 0.7 mg/dL (0.6-1.3); GFR - MDRD 85 (>89); GLUCOSE 99 mg/dL (74-104); HDL CHOLESTEROL 40 mg/dL; LDL CHOLESTEROL,CALCULATED 63 mg/dL; LDL/HDL RATIO 1.6 (<4.4); POTASSIUM 3.7 mmol/L (3.5-4.5); SODIUM 140 mmol/L (135-145); TOTAL PROTEIN 7.1 g/dL (6.4-8.9); TRIGLYCERIDES 240 mg/dL (48-352); VLDL CHOLESTEROL 48 mg/dL
[2022-10-19 13:32] LABS: THYROID STIMULATING HORMONE 3.41 uIU/mL (0.34-5.60)
== END 2022-10-19 07:06 | disposition home or self-care (01) ==
LOC: LAB.N 07:05
PROVIDERS: ATTEND Physician Assistant Medical
DX: I10 Essential (primary) hypertension (principal); E78.5 Hyperlipidemia, unspecified; E20.9 Hypoparathyroidism, unspecified
CPT/HCPCS: 36415; 80050; 80061; 83721

== ENCOUNTER 2023-02-01 08:44 | Outpatient (CLI) | payer OTHER ==
--- NOTE | 2023-02-01 11:34 | XRAY Report ---
PROCEDURE: Chest 2 View X-Ray INDICATIONS: ASTHMA EXACERBATION TECHNIQUE: 2 views of the chest were acquired. COMPARISON: Chest x-ray 04/04/2019 FINDINGS: Surgical changes and devices: Left shoulder arthroplasty.. Lungs and pleura: No pleural effusions or pneumothorax. Lungs are clear. Mediastinum: Mediastinal contours appear normal. Heart size is normal. Bones and chest wall: No suspicious bony lesions. Overlying soft tissues appear unremarkable. IMPRESSION: No acute cardiopulmonary process. Reviewed by: Marco A Harmon MD on 02/01/2023 11:33 AM PST Approved by: Marco A Harmon MD on 02/01/2023 11:33 AM PST Station ID: [id number]
== END 2023-02-01 08:45 | disposition home or self-care (01) ==
LOC: DI 08:44
PROVIDERS: ATTEND Nurse Practitioner Family
DX: J45.901 Unspecified asthma with (acute) exacerbation (principal)

== ENCOUNTER 2023-04-12 10:38 | Day surgery (SDC) | payer OTHER ==
[2023-04-12] MEDS ORDERED: PROPOFOL 500 MG/50 ML 500 MG/50 ML VIAL ONE (10:42)
[2023-04-12] MEDS: LACTATED RINGERS 1,000 ML IV ONE ×2 (10:45→12:15)
--- NOTE | 2023-04-12 11:22 | ANESTHESIA ---
Pre-Anesthesia VS, & Labs - Diagnosis screening exam - Procedure colonoscopy Vital Signs: Temp Pulse Resp BP Pulse Ox O2 Flow Rate 36.6 C 82 14 148/75 H 97 04/12/23 10:45 04/12/23 10:45 04/12/23 10:45 04/12/23 10:45 04/12/23 10:45 Height: 4 ft 11 in Weight (kg): 74.1 kg Body Mass Index: 33.0 BMI Classification: Obese - NPO >8 hours - Is Patient ?: No Home Medications and Allergies Home Medications: Ambulatory Orders Albuterol Sulf [Ventolin Hfa Inhaler] 1 - 2 puffs INH Q4HR PRN 04/05/23 Ipratropium/Albuterol [Duoneb] 3 ml INH Q6H PRN 04/05/23 Omeprazole 20 mg PO DAILY 04/05/23 Atorvastatin Calcium 10 mg PO QPM 07/17/12 Fexofenadine HCl [Carmen Allergy] 180 mg PO DAILY 04/29/16 Fluticasone/Salmeterol [Advair Hfa 230-21 Mcg Inhaler] 1 puffs INH DAILY 04/29/16 diltiaZEM CD [Cardizem Cd] 240 mg PO DAILY 04/29/16 hydroCHLOROthiazide [Hydrochlorothiazide] 25 mg PO DAILY 04/29/16 Losartan [Cozaar] 100 mg PO DAILY 05/24/22 Albuterol Sulf [Ventolin Hfa Inhaler] 1 - 2 puffs INH Q4HR PRN 04/05/23 Ipratropium/Albuterol [Duoneb] 3 ml INH Q6H PRN 04/05/23 Omeprazole 20 mg PO DAILY 04/05/23 Allergies/Adverse Reactions: Allergies Allergy/AdvReac Type Severity Reaction Status Date / Time bee pollen Allergy Unknown Verified 03/15/23 16:09 seasonal Allergy Respiratory Uncoded 03/15/23 16:09 Anes History & Medical History - Anesthetic History Anesthesia Complications: reports: No previous complications - Medical History Cardiovascular: reports: Hypertension, High cholesterol, Deep vein thrombosis, Arrhythmia (PVC) Pulmonary: reports: Asthma (well controlled) Gastrointestinal: reports: GERD Urinary: reports: None Neuro: reports: None Musculoskeletal: reports: Osteoarthritis Endocrine/Autoimmune: reports: None Skin: reports: None Smoking Status: Never smoker Psychosocial: reports: No issues indicated History of Cancer?: No - Surgical History General: reports: Cholecystectomy Eyes Ears Nose Throat (EENT): reports: Tonsil/Adenoidectomy Orthopedic: reports: Shoulder arthroplasty, Arthroscopic surgery Exam General: Alert, Oriented x3, Cooperative, No acute distress Dental: WNL Mouth Openin Fingerbreadth Neck Mobility: Normal Mallampati classification: II Thyromental Distance: 4-6 cm Mental/Cognitive Status: Alert/Oriented X3, Normal for patient Plan Anesthesia Type: General, Total IV Consent for Procedure(s) Verified and Reviewed: Yes Code Status: Attempt Resuscitation ASA classification: 3-Severe systemic disease Is this case an emergency?: No
--- NOTE | 2023-04-12 11:36 | HISTORY & PHYSICAL EXAMINATION ---
Chief Complaint - Chief Complaint Chief Complaint: here for colonscopy History of Present Illness - History Obtained From Records Reviewed: yes History obtained from: pt Exam Limitations: none - History of Present Illness HPI Comment/Other: here for colonoscopy. no gi problems History - Past Medical History Cardiovascular: reports: Hypertension, High cholesterol, Deep vein thrombosis, Arrhythmia (PVC) Respiratory: reports: Asthma (well controlled) Neuro: reports: None Endocrine/Autoimmune: reports: None GI: reports: GERD : reports: None HEENT: reports: Chronic vision loss, Chronic hearing loss Psych: reports: None Musculoskeletal: reports: Osteoarthritis Derm: reports: None MRSA Hx?: No - Past Surgical History General: reports: Cholecystectomy Ortho: reports: Shoulder arthroplasty, Arthroscopic surgery HEENT: reports: Tonsil/Adenoidectomy - POLST Patient has POLST: No Meds/Allgy - Home Medications Home Medications: Ambulatory Orders Medication Instructions Recorded Confirmed Atorvastatin Calcium 10 mg PO QPM 07/17/12 04/05/23 Fexofenadine HCl [Carmen Allergy] 180 mg PO DAILY 04/29/16 04/05/23 Fluticasone/Salmeterol [Advair Hfa 1 puffs INH DAILY 04/29/16 04/05/23 230-21 Mcg Inhaler] [id number] CD [Cardizem Cd] 240 mg PO DAILY 04/29/16 04/05/23 hydroCHLOROthiazide 25 mg PO DAILY 04/29/16 04/05/23 [Hydrochlorothiazide] EPINEPHrine [Epinephrine] 0.3 mg IJ ONCE PRN #2 auto.injct 08/05/18 04/05/23 Losartan [Cozaar] 100 mg PO DAILY 05/24/22 04/05/23 Albuterol Sulf [Ventolin Hfa 1 - 2 puffs INH Q4HR PRN 04/05/23 04/05/23 Inhaler] Ipratropium/Albuterol [Duoneb] 3 ml INH Q6H PRN 04/05/23 04/05/23 Omeprazole 20 mg PO DAILY 04/05/23 04/05/23 - Allergies Allergies/Adverse Reactions: Allergies Allergy/AdvReac Type Severity Reaction Status Date / Time bee pollen Allergy Unknown Verified 03/15/23 16:09 seasonal Allergy Respiratory Uncoded 03/15/23 16:09 Review of Systems - Other Findings Other Findings: asthma improved. 10 pt ros as above otherwise unremarkable Exam - Vital Signs Vital Signs: Vital Signs x48h Temp Pulse Resp BP Pulse Ox 04/12/23 10:45 36.6 C 82 14 148/75 H 97 - Physical Exam General Appearance: positive: No acute distress, Alert Eyes Bilateral: positive: PERRL, EOMI Neck: positive: No JVD, Trachea midline Respiratory: positive: No respiratory distress Cardiovascular: positive: Regular rate & rhythm Abdomen: positive: No distention Neurologic/Psychiatric: positive: Oriented x3 Conclusion/Plan - Problem List (1) Colon cancer screening Conclusion/Plan: plan colonoscopy. parq held and consent obtained
[2023-04-12 13:07] VITALS: BP 151/78; O2SAT 95
--- NOTE | 2023-04-12 15:37 | ANESTHESIA POST OP EVALUATION ---
Anesthesia Post Eval - Post Anesthesia Eval Vitals: Last Vital Signs Temp 36.3 C L 04/12/23 12:35 Pulse 69 04/12/23 12:35 Resp 16 04/12/23 12:35 BP 151/78 H 04/12/23 12:35 Pulse Ox 95 04/12/23 12:35 O2 Flow Rate CV Function Including HR & BP: Stable Pain Control: Satisfactory Nausea & Vomiting: Negative Mental Status: Baseline Respiratory Status: Airway Patent Hydration Status: Satisfactory Anesthesia Complications: None
== END 2023-04-12 10:39 | disposition home or self-care (01) ==
LOC: SDS 10:38
PROVIDERS: ATTEND Surgery
PROC: 0DBM8ZZ Excision of Descending Colon, Via Natural or Artificial Opening Endoscopic (ICD-10-PCS; 2023-04-12)
PROC: 0DBH8ZZ Excision of Cecum, Via Natural or Artificial Opening Endoscopic (ICD-10-PCS; principal; 2023-04-12 12:15)
DX: Z12.11 Encounter for screening for malignant neoplasm of colon (principal); D12.0 Benign neoplasm of cecum; K63.5 Polyp of colon; K57.30 Diverticulosis of large intestine without perforation or abscess without bleeding; E66.9 Obesity, unspecified; Z68.33 Body mass index [BMI] 33.0-33.9, adult; J45.909 Unspecified asthma, uncomplicated; I10 Essential (primary) hypertension
CPT/HCPCS: 45380; J7120

== ENCOUNTER 2023-05-28 14:34 | Outpatient (CLI) | payer OTHER ==
--- NOTE | 2023-05-28 17:47 | XRAY Report ---
PROCEDURE: Shoulder 2+V RT INDICATIONS: RIGHT SHOULDER JOINT PAIN TECHNIQUE: 3 views of the shoulder were acquired. COMPARISON: None. FINDINGS: Bones: No fractures or dislocations. No suspicious bony lesions. Visualized ribs appear intact. AC joint hypertrophy with moderate downward going component. Mild glenohumeral joint degenerative mckeon e. Soft tissues: No suspicious soft tissue calcifications. The visualized lungs are within normal limi ts. IMPRESSION: AC joint hypertrophy with moderate downward going component. Mild glenohumeral joint degenerative leia nge. No acute bony abnormality. Reviewed by: Ryan Macedo MD on 05/28/2023 5:46 PM PDT Approved by: Ryan Macedo MD on 05/28/2023 5:46 PM PDT Station ID: [id number]
--- NOTE | 2023-05-28 17:48 | XRAY Report ---
PROCEDURE: Scapula 2V RT INDICATIONS: RIGHT SHOULDER JOINT PAIN TECHNIQUE: 2 views of the scapula were acquired. COMPARISON: Right shoulder from the same date FINDINGS: Bones: No fractures or dislocations. No suspicious bony lesions. AC joint hypertrophy with moderat e downward going component. Visualized ribs appear intact. Soft tissues: Overlying soft tissues appear normal. IMPRESSION: No acute bony abnormality of the scapula. AC joint hypertrophy with moderate downward going component . Reviewed by: Ryan Macedo MD on 05/28/2023 5:47 PM PDT Approved by: Ryan Macedo MD on 05/28/2023 5:47 PM PDT Station ID: [id number]
== END 2023-05-28 14:35 | disposition home or self-care (01) ==
LOC: DI 14:34
PROVIDERS: ATTEND Physician Assistant Medical
DX: M19.011 Primary osteoarthritis, right shoulder (principal)

== ENCOUNTER 2023-06-20 08:01 | Outpatient (CLI) | payer OTHER ==
--- NOTE | 2023-06-20 11:21 | MRI Report ---
Shoulder RT WO CLINICAL HISTORY: 63 years of age, Female, R SHOULDER PAIN. Comparison: Radiograph on 05/28/2023 Technique: Multiplanar, multisequence MRI of the right shoulder was performed without intravenous co ntrast. IV Contrast: Not Administered. Findings: Osseous acromial outlet: Moderate degenerative changes of the acromioclavicular joint with inferior p rojecting osteophyte, resulting in mild mass effect on the myotendinous junction of the supraspinatus . The acromion appears hypoplastic, which may be posttraumatic or postprocedural. No os acromiale. No significant subacromial/subdeltoid bursal fluid. Rotator cuff muscles and tendons: In the supraspinatus, there is low-grade, articular sided tear at t he most anterior footprint (7:15). There is additional focal, high-grade, bursa sided tear at the cri tical zone of the posterior supraspinatus (7:12). Low-grade, articular sided tear at the footprint of the infraspinatus. The teres minor is unremarkable. The subscapularis is unremarkable. Muscles are intact without evidence of atrophy or edema. Labral and capsular structures: Somewhat limited evaluation given patient motion. Anterior superior l abral tear. Posterior labral tear as well. Biceps tendon and anchor: The intra-articular and extra-articular biceps tendon are intact. Osseous and cartilaginous structures: Multifocal mild subchondral cystic changes in the humeral head, reactive. Mild chondral irregularity of the glenoid and of the humeral head. No acute fracture. Miscellaneous: No significant glenohumeral effusion. No intra-articular bodies. The remaining muscl es are normal in bulk without evidence of atrophy or edema. IMPRESSION: 1.Moderate degenerative changes of the acromioclavicular joint. 2.Hypoplastic acromion. 3.Focal high-grade tear of the supraspinatus. Additional low-grade tear of the supraspinatus and infr aspinatus. 4.Labral tear. 5.Mild chondrosis of the glenohumeral articulation. Reviewed by: Lena Buenrostro MD on 06/20/2023 11:19 AM PDT Approved by: Lena Buenrostro MD on 06/20/2023 11:19 AM PDT Station ID: [id number]
== END 2023-06-20 08:02 | disposition home or self-care (01) ==
LOC: DI 08:01
PROVIDERS: ATTEND Physician Assistant Medical
DX: M19.011 Primary osteoarthritis, right shoulder (principal); M75.111 Incomplete rotator cuff tear or rupture of right shoulder, not specified as traumatic; S43.401A Unspecified sprain of right shoulder joint, initial encounter

== ENCOUNTER 2023-08-07 21:28 | Outpatient (CLI) | payer OTHER ==
--- NOTE | 2023-08-07 23:12 | Ultrasound Report ---
PROCEDURE: Pelvic w/Transvaginal INDICATIONS: POSTMENOPAUSAL BLEEDING TECHNIQUE: Real-time scanning was performed of the pelvic organs, with image documentation. Additional endovagi nal scanning was necessary due to incomplete visualization of the adnexal and endometrial structures by transabdominal scanning. COMPARISON: None. FINDINGS: Uterus: Uterus is anteverted and normal in size at 7.7 x 4.8 x 6.7 cm. The myometrium is heterogene ous. 4.7 x 4.7 x 5.1 cm intramural/submucosal fibroid in left myometrium is seen. The endometrium me asures 7.3 mm in combined thickness. Heterogeneous echotexture within endometrium is noted. No de finite endometrial mass is seen. Ovaries: Bilateral ovaries are not visualized on this study. No adnexal masses are seen. Other: No pathologic free abdominal or pelvic fluid. IMPRESSION: 1. Heterogeneous myometrium with a left-sided intramural/subserosal fibroid as above. 2. Mildly thickened endometrium for patient's age. No definite endometrial mass is seen. [employer] correlat ion is recommended. 3. Bilateral ovaries are not visualized. No adnexal mass. Reviewed by: Larry Lr MD on 08/07/2023 11:11 PM PDT Approved by: Larry Lr MD on 08/07/2023 11:11 PM PDT Station ID: [id number]
== END 2023-08-07 21:29 | disposition home or self-care (01) ==
LOC: DI 21:28
PROVIDERS: ATTEND Family Medicine
DX: N95.0 Postmenopausal bleeding (principal); D25.1 Intramural leiomyoma of uterus; R93.89 Abnormal findings on diagnostic imaging of other specified body structures